=== PATIENT | female | born 1960 | race Caucasian/White ===

== ENCOUNTER → 2024-02-06 | Day surgery (SDC) | payer BC ==
[~2024-02-06] MED LIST: PROPOFOL 10 MG/ML 20 ML VIAL IV ONE
[2024-02-06 08:55] VITALS: TEMP 97.7
[2024-02-06 08:59] LABS: Glucose,Whole Blood 117 mg/dL (70-110)
[2024-02-06] MEDS: IV FLUID CONTINUATION 1,000 ML IV ONE (09:05)
[2024-02-06] MEDS: LACTATED RINGERS 1,000 ML IV SCH (09:06)
--- NOTE | 2024-02-06 09:32 | P.PCN ---
Date of Procedure: 02/06/24 Procedure(s) Performed: BRIEF HISTORY: Patient is a 63-year-old pleasant white female scheduled for an elective colonoscopy as a part of screening for colon cancer. PROCEDURE PERFORMED: Colonoscopy with biopsy . PREOPERATIVE DIAGNOSIS: Screening for colon cancer. IV sedation per Anesthesia. PROCEDURE: After informed consent was obtained, the patient, was brought into the endoscopy unit. IV sedation was administered by Anesthesia under continuous monitoring. Digital rectal examination was normal. Initially the Olympus CF-160 flexible video colonoscope was then inserted in the rectum, gradually advanced into the cecum without any difficulty. Careful examination was performed as the scope was gradually being withdrawn. Ileocecal valve and the appendiceal orifice were visualized and appeared normal. Prep was excellent. Mucosa of the cecum, ascending colon, transverse colon, normal. The descending colon there was a 4 mm polyp that was removed by cold biopsy. In the sigmoid colon at 30 cm from the anal verge there was a 3 cm submucosal lipoma noted. Rest of the descending colon, sigmoid colon, and rectum appeared normal. Retroflexion was performed in the rectum and no lesions were seen. The patient tolerated the procedure well. IMPRESSION: 4 mm descending colon polyp status post cold biopsy 3 cm sigmoid colon lipoma RECOMMENDATIONS: Findings of this examination were discussed with the patient as well as her family. She was advised to follow-up with the biopsy results. I f the biopsy of the colon polyp reveals adenoma she can have repeat colonoscopy in 5 years..
[2024-02-06 09:58] VITALS: BP 131/80; PULSE 72; RESP 18
== END | disposition home or self-care (01) ==
LOC: ORWHC2ENDO 08:25
PROVIDERS: ATTEND Internal Medicine Gastroenterology
CPT/HCPCS: 45380; 88305